=== PATIENT | female | born 1935 | race Asian ===

== ENCOUNTER 2019-08-05 13:57 | Emergency (ER) | payer BC ==
[~2019-08-05] VITALS: Ht 149.9 cm; Wt 45.4 kg
--- NOTE | 2019-08-05 14:00 | NUR ---
1352---Patient BIBLakeisha ACLS accompanied by Lorie TAVAREZ with CPR in progress, transferred to bed 10. CPR continued by [facility] staff. Dr. Ramsey evaluating the patient at bedside.
--- NOTE | 2019-08-05 14:00 | NUR ---
SEE CODE SHEET FOR MEDS/PROCEDURES DONE DURING ARREST.
--- NOTE | 2019-08-05 14:15 | NUR ---
TIME OF CALLED AT THIS TIME BY DR KHAN.
--- NOTE | 2019-08-05 14:42 | NUR ---
CALLED [facility]. REPORT GIVEN TO SANIYA. RECORD #: [id number]
--- NOTE | 2019-08-05 14:47 | NUR ---
CALLED TO FLYING INSTRUCTOR. SPOKE WITH DANIELLE. COVERSTITCH ELASTIC ATTACHER TO CALL BACK.
--- NOTE | 2019-08-05 15:19 | NUR ---
PER SON, PRIMARY MD IS DR. NERI FROM [facility]. NO ARRANGEMENTS YET. GAVE LIST OF MORTUARIES. SON'S CONTACT NUMBER: [phone]
--- NOTE | 2019-08-05 15:55 | NUR ---
SPOKE WITH BRET FROM DR NERI OFFICE TO INFORM OF PT .
--- NOTE | 2019-08-05 16:47 | NUR ---
CALLED [employer] SPANISH TEACHER TO FOLLOW UP. WAS TOLD THAT CASE IS 5TH ON THE LIST.
--- NOTE | 2019-08-05 16:49 | NUR ---
RECEIVED CALL FROM DAUGHTER ASKING IF POSSIBLE TO SEE MOTHER. INFORMED PT THAT POSSIBLE TO COME BUT CANNOT MAKE CONTACT WITH BODY.
--- NOTE | 2019-08-05 18:15 | NUR ---
CALLED TO FOLLOW UP ON [facility]. STILL ON WAITLIST.
--- NOTE | 2019-08-05 22:05 | NUR ---
Called and spoke to Amber with [facility]. No Assignment Agent assigned at this time. Body in ER10. Awiting retrun phone call.
--- NOTE | 2019-08-06 02:13 | NUR ---
CALLED ADVERTISING DESIGNER OFFICE TO FOLLOW UP. STATE THEY ARE "VERY BUSY" NO ETA PROVIDED. STATES SHE WOULD LET THE ADVERTISING DESIGNER KNOW.
--- NOTE | 2019-08-06 03:55 | NUR ---
Spoke with watch crystal molder at coroners office, Amber. States there is nothing they can do at this time. There are no coroners available.
--- NOTE | 2019-08-06 04:00 | NUR ---
Spoke with rep from [facility]. Cleared body to be released body to supervisor payroll due to length of stay in ER.
--- NOTE | 2019-08-06 07:09 | NUR ---
[facility] WAS TOLD "THERE WAS A LOT OF CASES LAST NIGHT AND THEY WERE BUSY WITH FIELD CALLS." WAS TOLD TO EXPECT PHONE CALL WITHIN 15-30 MINS.
--- NOTE | 2019-08-06 08:30 | NUR ---
[facility] ED[facility] SHE STATES "THE DEPUTIES ARE SWAMPED RIGHT NOW WITH ABOUT 20 OTHER HOSPITALS SO I CANT GIVE YOU AN ETA"
--- NOTE | 2019-08-06 08:35 | NUR ---
SPOKE WITH FERNANDO HOUSE FROM [facility] DISE[facility] SPECIALIST OFFICE, [place] TO RELEASE BODY; .
--- NOTE | 2019-08-06 08:45 | NUR ---
ATTEMPT MADE TO CALL NEXT OF KIN TO CONFIRM HOME. NO ANSWER. WILL ATTEMPT TO CALL AGAIN.
--- NOTE | 2019-08-06 09:05 | NUR ---
PER RESEARCH PHLEBOTOMIST MARISABEL, PT WILL GO TO [facility] ROOM 128.
--- NOTE | 2019-08-06 09:20 | NUR ---
PT MOVED TO [facility] 128.
--- NOTE | 2019-08-06 09:30 | NUR ---
ATTEMPT MADE TO CONTACT FAMILY, LINE PICKS UP THEN HANGS UP, CALL ENDS.
--- NOTE | 2019-08-06 09:40 | NUR ---
ATTEMPT MADE TO CONTACT FAMILY, LINE PICKS UP THEN HANGS UP, CALL ENDS.
--- NOTE | 2019-08-06 10:00 | NUR ---
ATTEMPT MADE TO CONTACT FAMILY, LINE PICKS UP THEN HANGS UP, CALL ENDS.
--- NOTE | 2019-08-06 11:40 | NUR ---
RECEIVED CALL FROM [facility], HALLIE. PER TARIK MO IS TO HR SHARED SERVICES CONSULTANT BODY WITHIN 2-3 HOURS.
--- NOTE | 2019-08-06 13:55 | NUR ---
DOUG GRIGGS HERE FOR FIELD CONTRACTOR OF BODY. BODY RELEASED TO MORTUARY STAFF AT THIS TIME. ALL PAPERWORK COMPLETED.
== END 2019-08-05 14:15 | disposition expired ==
LOC: EDBD 13:57 → MED 13:57
DX: I46.9 Cardiac arrest, cause unspecified (principal); E11.9 Type 2 diabetes mellitus without complications
CPT/HCPCS: 92950; 99285